=== PATIENT | female | born 1995 | race African-American/Black ===

== ENCOUNTER 2024-05-20 11:44 | Inpatient (IN) | payer OTHER ==
[2024-05-20 12:16] VITALS: BMI 32.4
[2024-05-20] MEDS ORDERED: Magnesium Sulfate 20 gm/500 ml 20 GM/500 ML BAG ONE (12:56)
[2024-05-20] MEDS: Lactated Ringer's 1,000 ML IV SCH (13:00)
[2024-05-20] MEDS: Magnesium Sulfate 20 gm/500 ml 20 GM/500 ML BAG IVPB SCH (13:07)
[2024-05-20] MEDS ORDERED: Lidocaine 1% (PF) 30 ML VIAL SC PRN (13:26)
[2024-05-20] MEDS ORDERED: hydrALAZINE 20 MG/ML VIAL SLOW IVP PRN (13:26)
[2024-05-20] MEDS ORDERED: Ondansetron PF 4 MG/2 ML Vial IVP PRN (13:26)
[2024-05-20] MEDS ORDERED: fentaNYL 50 mcg/mL 1 mL Vial SLOW IVP PRN (13:26)
[2024-05-20] MEDS ORDERED: Promethazine HCl 25 MG/ML VIAL IM PRN (13:26)
[2024-05-20] MEDS ORDERED: Ibuprofen 800 MG TAB PO PRN (13:26)
[2024-05-20] MEDS ORDERED: Penicillin G Potassium 5 MILL.UNITS in Sodium Chloride 0.9% 100 ML IVPB SCH (13:30)
[2024-05-20] MEDS ORDERED: Oxytocin 30 units/NS 500 ML 500 ML IV SCH (13:30)
[2024-05-20] MEDS ORDERED: Magnesium Sulfate 1 GM, IV Admixture Fee-Chemo 1 UNITS in Sodium Chloride 0.9% 100 ML IV SCH (13:30)
[2024-05-20] MEDS ORDERED: Magnesium Sulfate 20 gm/500 ml 2 GM/50 ML BAG IVPB SCH (13:45)
[2024-05-20 16:51] LABS: Hematocrit 30.6 % (34.9-44.5); Hemoglobin 9.9 g/dL (12.0-15.5); Mean Corpuscular HGB CONC 32.4 g/dL (32.0-36.0); Mean Corpuscular Hemoglobin 27.1 pg (27.0-33.0); Mean Corpuscular Volume 83.8 fL (81.6-98.3); Mean Platelet Volume 12.9 fL (7.4-10.4); Platelet Count 194 10x3/uL (150-450); RBC Distribution Width 14.1 % (11.5-14.5); Red Blood Cell (RBC) Count 3.65 10x6/uL (3.90-5.03); White Blood Cell (WBC) Count 12.5 10x3/uL (3.5-10.5)
[2024-05-20 17:29] LABS: Hep B Surf Ag - L&D Non-Reactive S/CO (NonReactive)
[2024-05-20 17:30] LABS: Syphilis Antibody Nonreactive (Nonreactive); Syphilis Antibody Index 0.09 S/CO (<1.00 Non-Reactive)
[2024-05-20] MEDS: Penicillin G 2.5 MILL.units 2.5 MILL.UNITS in Premix 1 BAG IVPB SCH (21:14)
[2024-05-20] MEDS: Zolpidem Tartrate 5 MG TAB PO PRN (21:14)
[2024-05-21] MEDS: Betamet Acet/Betamet Na Ph 30 MG/5 ML VIAL IM SCH (08:43)
[2024-05-21] MEDS: metroNIDAZOLE 500 MG TAB PO SCH ×2 (15:08→20:58)
[2024-05-21] MEDS: Zolpidem Tartrate 5 MG TAB PO SCH (22:10)
[2024-05-21] MEDS: NIFEdipine 10 MG CAP PO SCH (22:10)
[2024-05-22 07:34] VITALS: TEMP 98
[2024-05-22] MEDS: NIFEdipine 10 MG CAP PO PRN (10:48)
[2024-05-22 11:37] VITALS: BP 104/54
== END 2024-05-22 13:23 | disposition home or self-care (01) | DRG 833 ==
LOC: CSHLD 11:44 → CSHANTE 05-21 17:37
PROVIDERS: ADMIT Obstetrics & Gynecology; ATTEND Obstetrics & Gynecology
DX: O60.02 Preterm labor without delivery, second trimester (principal); O30.042 Twin pregnancy, dichorionic/diamniotic, second trimester; Z3A.27 27 weeks gestation of pregnancy
CPT/HCPCS: 85027; 86780; 86850; 86900; 86901; 87340; 99285; J0702; J3475; J7120

== ENCOUNTER 2024-06-10 10:53 | Emergency (ER) | payer OTHER ==
[2024-06-10 12:05] LABS: #Basophils Less than 0.03 10x3/uL (0.0-0.2); #Eosinophils Less than 0.03 10x3/uL (0.0-0.5); #Monocytes 0.42 10x3/uL (0.0-1.1); #Neutrophils 4.46 10x3/uL (1.5-8.4); %Basophils 0.2 % (0.0-2.0); %Eosinophils 0.3 % (0.0-6.0); %Monocytes 7.2 % (0.0-10.0); %Neutrophils 76.9 % (40.0-75.0); Hemoglobin 10.2 g/dL (12.0-15.5); Mean Corpuscular HGB CONC 31.9 g/dL (32.0-36.0); Mean Corpuscular Hemoglobin 25.1 pg (27.0-33.0); Mean Corpuscular Volume 78.8 fL (81.6-98.3); Mean Platelet Volume 11.3 fL (7.4-10.4); Platelet Count 200 10x3/uL (150-450); RBC Distribution Width 14.5 % (11.5-14.5); Red Blood Cell (RBC) Count 4.06 10x6/uL (3.90-5.03)
[2024-06-10 12:22] LABS: ALT (SGPT) 13 U/L (Less than 34); AST (SGOT) 31 U/L (11-34); Albumin 3.2 g/dL (3.1-4.5); Alkaline Phosphatase 133 U/L (40-110); Anion Gap 12 mmol/L (10-20); BUN (Urea Nitrogen) 4 mg/dL (7.0-18.7); Bilirubin, Total 0.9 mg/dL (0.3-1.2); Calc. Creatinine Clearance 0 mL/min (70-130); Calcium 8.7 mg/dL (7.8-10.44); Carbon Dioxide 20 mmol/L (22-29); Chloride 106 mmol/L (98-107); Estimated GFR 126; Globulin 3.8 g/dL (2.4-3.5); Glucose 78 mg/dL (70-105); Potassium 3.7 mmol/L (3.5-5.1); Sodium 134 mmol/L (136-145)
== END 2024-06-10 13:05 | disposition home or self-care (01) ==
LOC: CSHERS 10:53
DX: O99.513 Diseases of the respiratory system complicating pregnancy, third trimester (principal); R06.02 Shortness of breath; R05.9 Cough, unspecified; Z3A.31 31 weeks gestation of pregnancy
CPT/HCPCS: 71046; 80053; 83880; 84145; 85025; 87428; 93005